=== PATIENT | female | born 1960 | race Caucasian/White ===

== ENCOUNTER 2017-02-08 12:32 | Emergency (ER) | payer OTHER ==
[~2017-02-08] VITALS: Ht 167.6 cm; Wt 72.7 kg
[~2017-02-08 12:32] MED LIST: ALBU8.5H2 INHALATION; LORA1TAB PO
[2017-02-08 12:41] VITALS: BP 137/81; PULSE 79; RESP 20; O2SAT 96
--- NOTE | 2017-02-08 14:44 | ED.REPORT ---
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 She apparently lives in [facility] and was transported by a friend to [facility] in [place] with the understanding that she had been accepted there for alcohol withdrawal in anticipation of inpatient therapy in [place] coming up next week. Her acceptance at [facility] was slated for yesterday and so she showed up today one day late and they did not have room for her. She was then brought to the emergency department for further evaluation and assistance. Apparently however her expectations were that we would hold her here until next week when crisis respite to take her or her bed date in [place] became available. First words to me are "I need something to drink and a meal. " She denies any other symptoms and is relatively unwilling to share a more detailed history. She says that she has been drinking steadily for 6 months. She says she has a long history of alcoholism. She says that she does not use any other drugs and she says that she is not sick with symptoms such as: Fever, vomiting, abdominal pain, chest pain, diarrhea Nursing Notes Stated Complaint: [facility]IS CENTER Chief Complaint: Substance Abuse Nursing Notes Reviewed: Yes Allergies: Coded Allergies: No Known Allergies (Verified Allergy, Unknown, 10/04/15) Scheduled Albuterol HFA (Proair HFA) 8.5 Gm Hfa.aer.ad 2 PUFFS INHALATION Q4H Scheduled PRN Lorazepam (Lorazepam) 1 Mg Tablet 1 MG PO DIRECTED PRN PRN For Anxiety 2 tablets every 4 hours 2 days, one tablet every 4 hours 2 days, 1 tablet 3 times a day for 2 days then stop. Lorazepam (Ativan) 1 Mg Tablet 1 MG PO QID PRN PRN For Anxiety General Time Seen by Provider: 14:43 Chief Complaint Other (alcohol withdrawal) Hx Obtained From: Patient Onset Occurred: 5 - 8 hours ago Symptom Duration: Duration unknown Severity: Current: Mild Severity: Maximum: Mild Recent Healthcare: No recent doctor visit Similar Sx Previous: No Past Medical History Past Medical History [place] s/p stent Alcoholism Denies Hx of hepatitis. Denies Hx of ulcer. 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 Lives alone, owns her own house. Alcohol Use: >5 per day Drug Use: THC Other Social History: Poor social support Ambulatory Status Independent Review of Systems Review of Systems Note: alcohol withdrawal Constitutional: Denies: Chills, Fever Cardiovascular: Denies: Chest pain Complete sys rev & neg: except as marked. Physical Exam Initial Vital Signs Vital Signs (First) Date Time Temp Pulse Resp B/P Pulse Ox O2 Delivery O2 Flow Rate FiO2 02/08/17 12:41 36.7 79 20 137/81 96 Room Air Initial VS: Reviewed General/Constitutional: Awake, Alert Appearance / Presentation: Positive: Intoxicated Respiratory / Chest: Atraumatic, Breath sounds NL, Breath sounds = bilat, No respiratory distress, No rales, No rhonchi, No wheezing Cardiovascular: Heart rate NL, Regular rhythm, Heart sounds NL, No gallop, No murmurs, No rubs Abdomen: No guarding, No rebound Neurologic: Oriented X3, Speech NL Psychiatric: Affect NL, Mood NL, Not suicidal Abnormal Mood/Affect: Positive: Irritable Head / Eyes: Atraumatic, Normocephalic, PERRL, EOMI ENT: Atraumatic, Mucous membranes moist Skin: Atraumatic, Color NL, Warm, Dry Interpretation & Diagnostics Lab Results Interpretation Test 02/08/17 14:15 Hold Urine Received (Received) Re-Eval/Medical Decision Med Decision/Clinical Course I would not discharge the patient with a lorazepam taper without a supervising adult or facility to manage the tapering medication. Patient is quite upset by this fact, but nonetheless I think this is the appropriate course of action. If she is excepted to crisis respite I would send a prescription for lorazepam to them to go out to her. I would also give the prescription to a responsible adult who agreed to manage the medication for her; specifically withhold it from her if she continues to drink. Source of Hx: Old records Re-Evaluation/Progress : Time of Eval: 15:35 Re-Evaluation/Progress Note: Rechecked patient, explained test results, diagnosis, and plan for discharge. Patient understands and agrees with the plan. All questions addressed. Consultation #1: Call Returned at: 14:48 Note: Discuseed patient case with patient's boyfrined Booker Sepulveda. Consent is obtained from patient to talk about her case with him. Consultation #2: Call Returned at: 15:12 Note: Discusses patient case with social work lecturer who reports that patient was driven to [facility] today with the false idea that she had a bed arranged. Her boyfriend will probably not be able to drive her anywhere because he has returned to [place] and has no transportation at this point. Counseled Regarding: Diagnosis, Lab results, Need for follow-up, When/why to return to ED Discharge & Departure Impression: Primary Impression: Alcohol withdrawal Additional Impression: Alcohol intoxication Disposition: Home Discharge Condition All VS Reviewed: Yes Condition: Stable Patient Instructions: Abuse of Alcohol (ED) Additional Instructions: I recommend that you abstain from alcohol. Use lorazepam (Ativan) as directed to help with withdrawl symptoms. Call [facility] periodically to see if a bed becomes available. I wish you the best with your sobriety. Referrals: GUMARO (PCP) Cleve Attestation Portions of this note were transcribed by Alberto Jennings. I, Dr. Gordon personally performed the history, physical exam and medical decision-making; I reviewed and confirmed the accuracy of the information in the transcribed note. Signed by: Cleve Zhu, 02/08/2017,8466. copies to: Carlos Del Castillo MD Feb 08, 2017 14:44 Alberto Jennings Feb 08, 2017 14:52
[2017-02-08] MEDS ORDERED: LORazepam 2 mg Tablet PO ONE (14:50)
[2017-02-08] MEDS ORDERED: LORA-303 PO (15:14)
== END 2017-02-08 16:15 | disposition home or self-care (01) ==
LOC: SED 12:32
DX: F10.239 Alcohol dependence with withdrawal, unspecified (principal); I10 Essential (primary) hypertension; J44.9 Chronic obstructive pulmonary disease, unspecified; I25.10 Atherosclerotic heart disease of native coronary artery without angina pectoris; I25.2 Old myocardial infarction; Z95.5 Presence of coronary angioplasty implant and graft; F17.200 Nicotine dependence, unspecified, uncomplicated; Z79.899 Other long term (current) drug therapy

== ENCOUNTER 2017-04-28 22:25 | Emergency (ER) | payer OTHER ==
[~2017-04-28] VITALS: Ht 167.6 cm; Wt 72.7 kg
[~2017-04-28 22:25] MED LIST changes: +LORA-303 PO
[2017-04-28 22:29] VITALS: BP 150/93; PULSE 80; RESP 17; O2SAT 96
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
[2017-04-29 03:44] VITALS: BP 121/70; PULSE 84; RESP 16; O2SAT 96
[2017-04-29 04:16] LABS: BASOPHILS % (AUTO) 0.5 % (0-3); EOSINOPHILS % (AUTO) 2.3 % (0-5); Mean Corpuscular Hemoglobin 32.1 pg (27.0-35.0); Mean Corpuscular Volume 94.9 fL (81-100); Platelet Count 322 bil/L (150-400)
[2017-04-29] MEDS ORDERED: LORazepam 2 mg Tablet PO ONE (06:10)
[2017-04-29] MEDS ORDERED: LORA-305 PO (06:20)
--- NOTE | 2017-04-29 07:47 | DRSVH ---
PROCEDURE: CT BRAIN WITHOUT CONTRAST ([id number]) INDICATIONS: head injury, altered, etoh TECHNIQUE: Noncontrast 4.5 mm thick angled axial sections acquired from the foramen magnum to the vertex, with c oronal reformats. COMPARISON: None. FINDINGS: Image quality: Excellent. CSF spaces: Basal cisterns are patent. No extra-axial fluid collections. The ventricles are symmet boo in size and shape. Brain: No intracranial bleeds or masses. Subtle, focal uribe/white matter dedifferentiation There is cerebral volume loss for age, with resultant ventricular and sulcal prominence. There are periventr icular and deep white matter chronic small vessel ischemic changes. There is an old lacunar infarct w ithin the right basal ganglia. There is intracranial internal carotid artery atherosclerosis. Skull and face: There is a medial right orbital fracture with subcutaneous emphysema in the preorbita l soft tissues. No definite intraconal hematoma, although there is likely mild proptosis of the right globe. Sinuses: Visualized sinuses and mastoids are clear. IMPRESSION: 1. No acute intracranial findings. 2. Findings likely associated with microvascular ischemic changes and old right basal ganglia lacunar infarct. 3. Right medial orbital wall fracture with preorbital subcutaneous emphysema and mild right proptosis . If further characterization is warranted, a maxillofacial CT is recommended. These findings are concordant with the overnight interpretation. Dictated by: Pau Amaral M.D. on 04/29/2017 at 7:40 Approved by: Pau Amaral M.D. on 04/29/2017 at 7:45
[2017-04-29 08:25] VITALS: BP 169/99; PULSE 95; RESP 14; O2SAT 95
== END 2017-04-29 08:22 | disposition home or self-care (01) ==
LOC: SED 22:25
DX: S02.31XA Fracture of orbital floor, right side, initial encounter for closed fracture (principal); F10.239 Alcohol dependence with withdrawal, unspecified; Y04.8XXA Assault by other bodily force, initial encounter; Y93.9 Activity, unspecified; Y92.9 Unspecified place or not applicable; Y99.9 Unspecified external cause status; I10 Essential (primary) hypertension; I25.10 Atherosclerotic heart disease of native coronary artery without angina pectoris; I25.2 Old myocardial infarction; F17.200 Nicotine dependence, unspecified, uncomplicated

== ENCOUNTER 2017-07-06 16:17 | Emergency (ER) | payer OTHER ==
[~2017-07-06] VITALS: Ht 167.6 cm; Wt 59.1 kg
[~2017-07-06 16:17] MED LIST changes: +LORA-305 PO
[2017-07-06 16:19] VITALS: BP 143/90; PULSE 124; RESP 20; O2SAT 94
[2017-07-06] MEDS ORDERED: _LORazepam 2 MG Tablet PO SCH (18:20)
--- NOTE | 2017-07-06 18:23 | ED.REPORT ---
[facility]-Medical Clearance Date of Service Jul 06, 2017 ED Provider: Melvin Sarkar PA-C [place] is a 57-year-old female with a History of COPD, CAD, HTN, presenting to emergency department for medical clearance to crisis respite for alcohol rehabilitation. She has no physical complaints at this time. Last drink was earlier today. Reports drinking a 12 pack of beer per day, smoking marijuana. She has a bed arranged a crisis respite and needs an Ativan taper. Nursing Notes Stated Complaint: DETOX,HAS BED AT CRISIS CENTER Chief Complaint: Substance Abuse Nursing Notes Reviewed: Yes Allergies: Coded Allergies: No Known Allergies (Verified Allergy, Unknown, 10/04/15) Scheduled Albuterol HFA (Proair HFA) 8.5 Gm Hfa.aer.ad 2 PUFFS INHALATION Q4H Scheduled PRN Lorazepam (Lorazepam) 1 Mg Tablet 1 MG PO DIRECTED PRN PRN For Anxiety 2 tablets every 4 hours 2 days, one tablet every 4 hours 2 days, 1 tablet 3 times a day for 2 days then stop. Lorazepam (Ativan) 1 Mg Tablet 1 MG PO QID PRN PRN For Anxiety Lorazepam (Ativan) 2 Mg Tablet 2 MG PO DIRECTED PRN PRN For Anxiety q4hx2d, q6x2d, tidx2d, bidx2d then stop General Time Seen by Provider: 16:23 Chief Complaint : Other (medical clearance for crisis rehabilitation.) Past Medical History Past Medical History [place] s/p stent Alcoholism Denies Hx of hepatitis. Denies Hx of ulcer. 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 Lives alone, owns her own house. Alcohol Use: >5 per day Drug Use: THC Other Social History: Poor social support Ambulatory Status Independent Review of Systems General: Denies fever, chills, malaise. HEENT: Denies congestion, headache, sore throat. Respiratory: Denies dyspnea, cough, shortness of breath, wheezing. Cardiovascular: Denies chest pain, palpitations. Gastrointestinal: Denies vomiting, diarrhea, abdominal pain. Genitourinary: Denies frequency, urgency, dysuria, hematuria. Otherwise as noted in HPI. Physical Exam General: Well appearing, well developed, well nourished, no acute distress. Head: Atraumatic, normocephalic. Eyes: No scleral icterus or injection. No discharge. Vision grossly intact. ENT: Voice clear, hearing grossly intact. Respiratory: Regular rate and rhythm. Breath sounds present, clear to auscultation and equal bilaterally. No respiratory distress. No increased work of breathing, speaks in complete sentences. Cardiovascular: Regular rate and rhythm, without murmur, gallop or rub. No pedal edema. Gastrointestinal: Abdomen flat and non-tender without guarding or rebound. Bowel sounds normoactive. Skin: Warm and dry. Neurological: Grossly nonfocal. Psychological: Alert and oriented. Speech appropriate, linear and logical if slightly slurred. Behavior appropriate. Initial Vital Signs Vital Signs (First) Date Time Temp Pulse Resp B/P Pulse Ox O2 Delivery O2 Flow Rate FiO2 07/06/17 16:19 37.1 124 20 143/90 94 Room Air Tachycardia, elevated blood pressure Interpretation & Diagnostics Interpretation & Diagnostics: Breathalyzer 0.244 Re-Eval/Medical Decision Med Decision/Clinical Course Descent female with history of alcohol is presents emergency Department seeking medical clearance for crisis rehabilitation. She reportedly has a bed available to her but was initially too intoxicated for placement. They are looking for a pleasant level below 0.25. Crisis respite is requesting a prepack of Ativan taper. She has no physical complaints at this time. Physical Reveals slightly slurred speech, patient smells of alcohol. Otherwise benign. Triage vitals are notably tachycardic and hypertensive. Tachycardia has significantly improved at examination. Patient has a medical stability and believes she can be cleared for alcohol detox. Patient is provided with 4 total milligrams of Ativan while waiting for discharge. Ativan prepack is ordered and delivered. Patient is discharged via taxi to crisis rehabilitation. Provider and to return precautions. Patient verbalized understanding of and consent to the plan. Discharge & Departure Impression: Primary Impression: Alcohol abuse Disposition: Home Discharge Condition All VS Reviewed: Yes Condition: Stable Additional Instructions: Evaluation in the emergency department reveals no acute medical instability, I believe you're medically cleared for alcohol rehabilitation. I will send you with a prepack of an Ativan taper to be dispensed by the staff at crisis respite. Return to emergency department for new or worsening symptoms including seizure. Referrals: OTHER,PHYSICIAN (PCP) EDSupervising Provider for APC: Richard Gomez MD, Seth PA-C Jul 06, 2017 18:23
[2017-07-06] MEDS ORDERED: _LORazepam 1 mg Tablet PO SCH (18:37)
[2017-07-06] MEDS ORDERED: LORazepam 2 mg Tablet PO ONE ×2 (19:35→20:50)
[2017-07-06 21:08] VITALS: BP 145/82; PULSE 108; RESP 18; O2SAT 95
--- NOTE | 2017-07-06 23:05 | NUR ---
ED [facility] Note D/A: Pt presented to the ED from [facility] for medical clearance prior to admission for detox. ED PA-C requested [facility] facilitate Pt's acceptance and admission to [facility]. P: [facility] faxed the necessary clinical information and Pt was accepted for admission at 2100 tonight. [facility] called [facility] and arranged for Pt to be transported to [facility] in time for her admission. Ebony Del Real, GERARDO, AAC
== END 2017-07-06 21:08 | disposition home or self-care (01) ==
LOC: SED 16:17
DX: F10.10 Alcohol abuse, uncomplicated (principal); I10 Essential (primary) hypertension; I25.10 Atherosclerotic heart disease of native coronary artery without angina pectoris; I25.2 Old myocardial infarction; J44.9 Chronic obstructive pulmonary disease, unspecified; F17.200 Nicotine dependence, unspecified, uncomplicated; Z95.5 Presence of coronary angioplasty implant and graft